=== PATIENT | female | born 1995 | race Hispanic/Latino ===

== ENCOUNTER 2020-08-24 11:53 | Inpatient (IN) | payer OTHER ==
[~2020-08-24] VITALS: Ht 149.9 cm; Wt 60.5 kg
--- OUTSIDE RECORDS SUMMARY | 2020-08-24 13:22 | XMS ---
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 E.Leticia VISIT COUNT (12 MO.) 2 [facility] [address] TOTAL 4 NOTE: Visits indicate total known visits. ED/UCC VISIT TRACKING (12 MO.) 08/24/2020 11:[address] [facility] [place] TYPE: Emergency COMPLAINT: - ABDOMINAL PAIN [facility] DIAGNOSES: - Epigastric pain - Calculus of gallbladder without cholecystitis without obstruction - abdominal and back pain 04/11/2020 13:[facility] COMPLAINT: - 35WKS PREG FALL, LOWER ABD PAIN DIAGNOSES: - 35WKS PREG FALL, LOWER ABD PAIN 10/08/2019 17:58 [facility] Nick DYLAN TYPE: Emergency DIAGNOSES: - Pregnacny Problem (4 weeks estimated gestation) - Unspecified abdominal pain - Other specified related conditions, first trimester - Abdominal Pain () INPATIENT VISIT TRACKING (12 MO.) 08/24/2020 11:56 [facility] [place] TYPE: Observation COMPLAINT: - ACUTE CHOLECYSITITIS 05/23/2020 07:40 [facility] [place] TYPE: Womens Services COMPLAINT: - Induction of labor DIAGNOSES: - Induction of labor [email or web address]
--- NOTE | 2020-08-24 15:23 | NUR ---
PT TRANSFERED TO [facility] VIA STRETCHER FROM ER. PT RESTING IN BED SAFELY, CALL LIGHT PLACED WITHIN REACH. NO C/O PAIN AT THIS TIME. VSS ON RA. SCD'S PLACED ON BILAT LE. IV FLUIDS INFUSING PER ORDER. ADMISSION ASSESSMENT AND CHARTING COMPLETED, NO NEEDS AT THIS TIME. REPORT RECIEVED FROM MAKENZIE CHRISTINE.
--- NOTE | 2020-08-24 16:50 | NUR ---
CALL FROM DR. JEROME THAT PATIENT WOULD GO TO SURGERY THIS EVENING. PATIENT IS DOING PRE-SURGERY WIPE DOWN.
--- NOTE | 2020-08-24 17:24 | NUR ---
MED REC COMPLETE
--- NOTE | 2020-08-24 18:17 | NUR ---
PT ADMITED FOR CHOLECYSTITIS W/ SURGERY TONIGHT. PT RESTING SAFELY IN BED WITH IV FLUIDS INFUSING PER PROVIDER ORDER. PT DENIES PAIN. IN ROOM.
--- NOTE | 2020-08-24 18:54 | NUR ---
SURGERY RN CAME TO FLOOR TO TAKE PT TO OR. PT VOIDED PRIOR TO BEING TAKEN. SCD'S ON AND LR W/ STRAIGHT TUBING HANGING.
--- NOTE | 2020-08-24 21:48 | NUR ---
08/24/202147 Cinda Paredes 2120 PT ARRIVED IN PACU NON RESPONSIVE TO NOXIOUS STIMULI WITH OPA IN PLACE. 2138 PT REACTIVE. OPA REMOVED. 2144 C/O URGE TO VOID. PLACED ON BEDPAN. UNABLE TO VOID. BEDPAN REMOVED.
--- NOTE | 2020-08-24 22:27 | NUR ---
PATIENT ARRIVED TO THE FLOOR VIA STRETCHER. PATIENT WAS ABLE TO AMBULATE FROM STRETCHER TO THE RESTROOM A SBA. PATIENT WAS ABLE TO VOID. PATIENT IS NO WIN BED RESTING. IV FLUIDS INFUSING. VITALS TAKEN AND RECORDED. PATIENT IS ON RA. IS IN ROOM. ALL QUESTIONS ANSWERED. NO NEEDS NOTED. CALL LIGHT IN REACH.
--- NOTE | 2020-08-24 22:55 | NUR ---
PATIENT CALLED ANR REPORTED 3/10 PAIN. PATIENT GIVEN PRN MOTRIN. PATIENT WAS ABLE TO TOLERATE JELLO WITH NO NAUSEA NOTED. NO FURTEHR NEEDS NOTED. CALL LIGHT IN REACH.
--- NOTE | 2020-08-24 23:27 | NUR ---
PATIENTS POST OP VITALS COMPLETED. PATIENT REPORTS NAUSEA. PRN NAUSEA MEDICATION GIVEN PER ORDER. HOB INCREASED. ICE PACK PROVIDED FOR PATIENTS ABD. NO FURTHER NEEDS NOTED. CALL LIGHT IN REACH.
--- NOTE | 2020-08-25 00:15 | NUR ---
PATIENT ASSISTED TO THE RESTROOM A SBA. PATIENT WAS ABLE TO VOID. PATIENT IS BACK IN BED RESTING. SCD IN USE. IV INFUSING. POST-OP VITALS TAKEN AND RECORDED. PATIENT DENIES ANY NAUSEA. PATIENT REPORTS 1/10 PAIN AND DENIES THE NEED FOR PAIN MEDICATION AT THIS TIME. CALL LIGHT IN REACH.
--- NOTE | 2020-08-25 01:06 | NUR ---
PATIENT ASSISTED TO THE RESTROOM A SBA. PATIENT WAS ABLE TO VOID. PATIENT IS BACK IN BED RESTING. PATIENT ASSISTED TO SET UP BREAT PUMP. NO FURTHER NEEDS NOTED. CALL LIGHT IN REACH.
--- NOTE | 2020-08-25 01:35 | NUR ---
PATIENT REPORTS 3/10 PAIN. PRN TYLENOL GIVEN PER ORDER. POST-OP VITALS TAKEN AND RECORDED. FRESH ICE WATER PROVIDED. PATIENT DENIES ANY NAUSEA. NO FURTHER NEEDS NOTED. CALL LIGHT IN REACH.
--- NOTE | 2020-08-25 02:55 | NUR ---
PATIENT ASSISTED TO THE RESTROOM A SBA W/FWW. PATIENT WAS ABLE TO VOID. PATIENT IS BACK IN BED RESTING. PATIENT PROVIDED WITH A SNACK. ASLEEP ON THE COUCH. NO FURTHER NEEDS NOTED. CALL LIGHT IN REACH.
--- NOTE | 2020-08-25 05:45 | NUR ---
PATIENT ASSISTED TO THE RESTROOM A SBA. PATIENT WAS ABLE TO VOID. PATIENT IS BACK IN BED RESTING. SCDS IN USE. PATIENTS VITALS TAKEN AND RECORDED. PREMA EMPTIED. INTAKE AND OUTPUT RECORDED. PATIENT REPORTS 3/10 PAIN. PATIENT GIVEN PRN MOTRIN PER ORDER. PATIENTS IV INFUSING PER ORDER. PATIENT DENIES ANY FURTHER NEEDS. CALL LIGHT IN REACH.
--- NOTE | 2020-08-25 06:07 | NUR ---
PATIENT CALLED AND REPORTED NAUSEA. PATIENT GIVEN PRN NAUSEA MEDICATION PER ORDER. NO FURTHER NEEDS NOTED. CALL LIGHT IN REACH.
--- NOTE | 2020-08-25 08:44 | NUR ---
patient resting in the bed, SO in the room. warm washcloth offered. patient got up to bathroom. call light with in reach. no further needs at this time.
--- NOTE | 2020-08-25 09:15 | NUR ---
Patient sitting up in bed pumping breast milk at this time. Patient to call me when she is done so I can to my morning assessment. Significant other at bedside. No needs at this time. Call light within reach.
--- NOTE | 2020-08-25 09:51 | NUR ---
Percocet 7.5/325mg po admin for reports of 8/10 abdominal pain.
--- NOTE | 2020-08-25 11:00 | NUR ---
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 Denies use of DME, financial issue, or needs. Her mother in law will stay with her and assist while her spouse works. He spouse is supportive and will help. She is painful now and RN notified. Denies needs for dc.
--- NOTE | 2020-08-25 11:16 | NUR ---
Ibuprofen 600mg po admin for reports of 8/10 abd pain. Patient ambulated in hallway with ALTERNATIVE MEDICINE PRACTITIONER assist; tolerated fairly, unable to make entire lap due to reports of severe abd pain. Patient back to bed. Fresh water provided. Pablo drain intact and patent.
--- NOTE | 2020-08-25 13:10 | NUR ---
Pt called to request assistance to the BR. SBA to BR, pt voided, now back in bed sitting up eating lunch, call light w/ in reach.
--- NOTE | 2020-08-25 13:24 | NUR ---
PT WAS AMBULATING IN HALLWAY WITH MAIKEL MANZO. RETRIEVED A WC-PT WAS BEGINNING TO STRUGGLE AND ALERTED HER RN DILLON TO COME TO HER AID. WILL FOLLOW
--- NOTE | 2020-08-25 15:57 | NUR ---
Patient reports passing flatus today. Bowel tones active x4 quadrant. Patient has no needs. Fresh water provided. Personal supplies and call light within reach.
--- NOTE | 2020-08-25 18:16 | NUR ---
Patient ambulated in hallway; tolerated well with 1P Standby assist.
--- NOTE | 2020-08-25 19:25 | NUR ---
in to provide pt an ice pack, no further needs
--- NOTE | 2020-08-25 19:39 | NUR ---
SHIFT REPORT RECEIVED FROM DILLON BANEGAS. PT RESTING IN BED. FAMILY IN ROOM. NO NEEDS AT THIS TIME. CALL LIGHT IN REACH.
--- NOTE | 2020-08-25 20:30 | NUR ---
IN TO GET VITALS, PT DUE TO VOID AT THIS TIME, DENIES NEED TO VOID, ICE WATER FILLED, ICE PACK IS STILL COOL FOR PT, NO FURTHER NEEDS AT THIS TIME
--- NOTE | 2020-08-25 20:46 | NUR ---
ASSESSMENT COMPLETED. GCS 15, A&O X4. PT EDUCATION PROVIDED ON I.S. ORAL TEMP WAS 99.3F. IV WNL, CDI, FLUSHED WELL. IV FLUIDS INFUSING PER ORDER. LUNGS CLEAR, HEART TONES REGULAR. ABD SOFT, TENDER, PT STATES MILDLY DISTENDED, WOUNDS CLEANED WITH WATER, PREMA DRESSING CHANGED. BOWEL TONES ACTIVE. CMS INTACT. PT PAIN 2/10, ICE PACK PROVIDED. FAMILY IN ROOM. NO OTHER NEEDS. CALL LIGHT IN REACH.
--- NOTE | 2020-08-25 21:04 | HP ---
[facility] [address], [place] [address] Signed ADMISSION DATE: 08/24/2020 REASON FOR ADMISSION: Acute calculous cholecystitis. HISTORY OF PRESENT ILLNESS: This 24-year-old woman was accompanied by her and presented to the Emergency Room and evaluated thoroughly by Dr. Bello for upper abdominal pain. She had been seen earlier in the day in the emergency room at [place] where full evaluation including gallbladder ultrasound showing multiple gallstones but no pericholecystic fluid or gallbladder wall thickening. She was found to have normal liver enzymes as well. Her white count was normal at 6.8. Consultation was initiated with the surgeon on-call in [place], however, that surgeon was in dispose and could not immediately present for further evaluation. The patient and her became unhappy, left the ER and presented to the ER in [place]. Note is made of lab studies done in [place] that showed a bilirubin of 0.2, alkaline phosphatase elevated at 170. Other liver enzymes were normal. The patient has had some improvement with Inapsine and intravenous pain medication and is now comfortable. The patient's pain began probably yesterday she thinks. It was associated with some nausea, no specific vomiting that she recalls. She has family history of biliary disease in her aunt. PAST MEDICAL HISTORY: Rather unremarkable except for childbirth x3. She has no known drug allergies. She has had eye surgery in the past, I am not sure what kind, possibly LASIK. She does not smoke. Does not use illicit drugs. SOCIAL HISTORY: She does not work outside the home. 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 REVIEW OF SYSTEMS: She denies any shortness of breath or chest pain. She had no dysphagia or dysuria. Denies any hematemesis or blood per rectum. PHYSICAL EXAMINATION: GENERAL: Pleasant woman who is somewhat sedated related to her medications, Electronically Signed By: DALY JEROME MD 08/25/20 2104 PATIENT NAME: SOPHIE OLIVAS HISTORY AND PHYSICAL DATE OF : [birth year] REPORT #: [id number] PHYSICIAN: DALY JEROME MD PCP: NO PRIMARY CARE PHYSICIAN REPORT IS CONFIDENTIAL AND NOT TO BE RELEASED WITHOUT AUTHORIZATION [facility] [address], [place] [address] Signed but fully alert and oriented otherwise. HEENT: Trachea is midline. Mucous membranes are quite dry. CHEST: Shows normal respiratory excursion. Pulses regular. ABDOMEN: Shows some laxity related to childbirth in the past. She has mild tenderness in the epigastric and subcostal area. EXTREMITIES: Shows no clubbing, cyanosis, or edema. LAB STUDIES: Were as described. Beta-hCG is negative. COVID test is pending. She tells me she has had COVID vaccination. ASSESSMENT: The patient is noted to have symptoms highly typical of acute calculous cholecystitis for which cholecystectomy would be recommended. Discussed with her this in detail. A laparoscopic approach would be most probable and quite likely overall. The risk of bleeding, infection, bile duct injury, need for open procedure, and so forth were reviewed in detail, she understands. PLAN: We will continue with IV antibiotics, fluid resuscitation and consider for cholecystectomy possibly later in the evening or tomorrow depending on other logistical factors. Daly Jerome MD JM/MODL /[id number] cc: Franklin Bello MD Copies: FRANKLIN BELLO MD ~ Electronically Signed By: DALY JEROME MD 08/25/20 2104 PATIENT NAME: SOPHIE OLIVAS HISTORY AND PHYSICAL DATE OF : [birth year] REPORT #: [id number] PHYSICIAN: DALY JEROME MD PCP: NO PRIMARY CARE PHYSICIAN REPORT IS CONFIDENTIAL AND NOT TO BE RELEASED WITHOUT AUTHORIZATION
--- NOTE | 2020-08-25 22:07 | NUR ---
SCHEDULED MED PROVIDED. ICE PACK PROVIDED. NO OTHER NEEDS. CALL LIGHT IN REACH.
--- NOTE | 2020-08-25 22:40 | NUR ---
PT ABD PAIN 09/10, PRN PAIN MED PROVIDED. PT UP TO BR. PT TO USE CALL LIGHT WHEN READY TO GO BACK TO BED.
--- NOTE | 2020-08-26 00:06 | NUR ---
PT RESTING IN BED, WATCHING TV. NO NEEDS AT THIS TIME. CALL LIGHT IN REACH.
--- NOTE | 2020-08-26 02:19 | NUR ---
PT CALLED, SHE USED RESTROOM. ADMINISTERED MOTRIN FOR 4/10 PAIN. SHE DENIES FURTHER NEEDS AT THIS TIME. CALL LIGHT IS CLOSE.
--- NOTE | 2020-08-26 05:19 | NUR ---
ASSESSMENT, VS AND I&O COMPLETED. PT DENIES PAIN. SCHEDULED MED PROVIDED. GCS 15, A&O X4. IV WNL, IV FLUIDS INFUSING PER ORDER. LUNGS CLEAR, HEART TONES REGULAR. ABD SOFT, TENDER, MILDLY DISTENDED, BOWEL TONES ACTIVE. PT DENEIS NAUSEA. CMS INTACT. ABD DRESSINGS WNL, PREMA EMPTIED OF 15ML SS OUTPUT. PT REPORTS FLATUS. NO OTHER NEEDS. CALL LIGHT IN REACH, SPOUSE IN ROOM.
--- NOTE | 2020-08-26 06:04 | NUR ---
PT REPORTS NAUSEA, PRN NAUSEA MED PROVIDED. NO OTHER NEEDS. CALL LIGHT IN REACH.
--- NOTE | 2020-08-26 08:20 | NUR ---
Patient reports nausea. Recently given zofran. Patient reports she was eating a cookie for breakfast. Encouraged patient to avoid sweet foods for the time being to help prevent stomach upset. Patient to shower and ambulate this morning here shortly.
--- NOTE | 2020-08-26 08:43 | NUR ---
Patient called for a new toilet HAT, one was provided. Provided warmm blanket and warm washcloth for morning routine. Call lightl left in reach. No other immediate needs at this time.
--- NOTE | 2020-08-26 10:29 | NUR ---
IBUPROFEN 600MG PO FOR 5/10 ABD PAIN.
--- NOTE | 2020-08-26 11:30 | NUR ---
Patient requested a shower. The shower was successfully complete. Patient complained of nauseau and drainage tubing. Bed linens changed, room tidied and organized. Patient went for a 10 minute walk w/ partner. Call light left in reach along with personal items.
--- NOTE | 2020-08-26 12:32 | NUR ---
PT SITTING ON SIDE OF BED FACING IN CHAIR. PT CLUTCHING PILLOW TO ABDOMEN. SEEMS TO DO MOST OF TALKIN FOR PT. SHE DID KNODD, THANKED ME FOR COMING IN. GAVE BLESSING AND WILL FOLLOW
--- NOTE | 2020-08-26 12:33 | NUR ---
Zofran 4mg IVP admin for reports of nausea.
--- NOTE | 2020-08-26 14:00 | NUR ---
In to see pt. Dr. Miner in room removing drain and giving dc instructions. He reviewed instructions with spouse. Pt will dc to home today with assist from family.
[2020-08-26] MEDS ORDERED: OXYCODON-ACETA1 EAC2 PO (14:08)
[2020-08-26] MEDS ORDERED: IBUPROFEN600 MG PO (14:08)
[2020-08-26] MEDS ORDERED: TYLENOL EXTRA500 MG PO (14:09)
[2020-08-26] MEDS ORDERED: ZOFRAN4 MG PO (15:13)
--- NOTE | 2020-08-27 11:49 | OR ---
[facility] [address] [place], [place] [address] Signed DATE OF OPERATION: 08/24/2020 SURGEON: Daly Jerome MD PREOPERATIVE DIAGNOSIS: Acute calculous cholecystitis. POSTOPERATIVE DIAGNOSIS: Acute calculous cholecystitis as well as obstructing distal common duct stone. PROCEDURES: 1. Laparoscopic cholecystectomy with laparoscopic transcystic common bile duct exploration. 2. Flexible choledochoscopy with extraction of stone debris. 3. Surgeon-directed fluoroscopy. ANESTHESIA: General endotracheal, Willian Graham, CEO and local 20 mL of 0.25% Marcaine with epinephrine. INDICATION: This 24-year-old woman presented to the [place] Emergency Room earlier in the day today, was diagnosed with multiple gallstones and findings consistent with acute cholecystitis. Her alkaline phosphatase was somewhat elevated and amylase was normal. She was disgruntled at the wait time to see a surgeon and left the ER and presented to [facility] where she was evaluated thoroughly by Dr. Franklin Bello. Her findings were consistent with acute calculous cholecystitis and consultation was undertaken. She has been admitted to the hospital, given intravenous fluid resuscitation, IV antibiotics and has been recommended to undergo cholecystectomy preferred by laparoscopic approach. She understands the risk of bleeding, infection, bile duct injury, need for open procedure and other unforeseen complications and wished to proceed. FINDINGS: The gallbladder was chronically inflamed actually. Preliminary intraoperative cholangiogram showed passage of contrast into the duodenum from the common duct and with various maneuvers, it appeared there was an obstructing distal common duct stone. On that basis, a transcystic duct common duct exploration was undertaken ultimately allowing for complete clearance of the duct. There were no other issues of note. Electronically Signed By: DALY JEROME MD 08/27/20 1149 PATIENT NAME: SOPHIE OLIVAS OPERATIVE REPORT DATE OF : [birth year] REPORT #: [id number] PHYSICIAN: DALY JEROME MD PCP: NO PRIMARY CARE PHYSICIAN REPORT IS CONFIDENTIAL AND NOT TO BE RELEASED WITHOUT AUTHORIZATION [facility] [address] [place], [place] [address] Signed DESCRIPTION OF PROCEDURE: The patient was brought to the operating room, given a general endotracheal anesthetic. Preoperative antibiotic Ancef had been given. Sequential compression device stockings used and heparin subcutaneously administered. After satisfactory general endotracheal anesthesia, the abdomen was prepared with a chlorhexidine solution and draped sterilely. An infraumbilical incision was made and using an open Elenita cannula technique pneumoperitoneum was achieved to a level of 14 mmHg with carbon dioxide gas. Intraabdominal inspection showed no sign of ascites or carcinomatosis. The gallbladder was chronically inflamed. The liver was normal. Three additional trocars were placed in usual configuration in the subxiphoid, right midclavicular, and right anterior axillary line. The gallbladder was elevated cephalad and found to have a fair amount of inflammatory change in the infundibulum. Infundibulum was grasped and retracted laterally using blunt electrocautery dissection and triangle of Calot was dissected free. Clips were applied to the dominant cystic duct, cystic artery allowing for division and more clear identification of the infundibulum and the cystic duct. Once the cystic duct was quite clearly identified, a clip was applied the gallbladder cystic duct junction and transverse choledochotomy made in the cystic duct. Retrograde milking of the cystic duct showed inflammatory biliary fluid. There were no stones. Using surgeon directed fluoroscopy with a cholangiogram with grasper, intraoperative cholangiography was undertaken. Free flow of contrast was noted into the biliary tree but impediment of flow into the duodenum. Retrograde filling of the proximal biliary radicals affirmed that the ampulla clearly had some obstructive process. One amp of glucagon was given. After appropriate wait time, repeat cholangiogram undertaken showing persistence of the obstruction. There appeared to be a probable single stone obstructing the distal duct. At this point, a laparoscopic common duct exploration was deemed advisable. A 5 mm port was placed with the cystic duct (taut) and a flexible wire passed down the cystic duct. Fluoroscopy confirmed the position of the wire into the common duct and into the duodenum. An ERCP catheter was then passed over the wire under direct visualization and the radiopaque nataliia is aligned along the ampulla. Dilation of the ampulla was then undertaken in the usual way, deflated and withdrawn to the cystic duct to allow for dilation of the cystic duct as well. Repeat cholangiography was undertaken after flushing of the duct, which showed persistence of impediment of flow of contrast and filling defect. A flexible choledochoscope with video assistance was passed down the cystic duct with all due care. The flexible choledochoscope could not really pass beyond the ampulla as Electronically Signed By: DALY JEROME MD 08/27/20 1149 PATIENT NAME: SOPHIE OLIVAS OPERATIVE REPORT DATE OF : [birth year] REPORT #: [id number] PHYSICIAN: DALY JEROME MD PCP: NO PRIMARY CARE PHYSICIAN REPORT IS CONFIDENTIAL AND NOT TO BE RELEASED WITHOUT AUTHORIZATION [address] [address] Signed sometimes is the case, but no stone was seen in the distal duct itself. The scope was withdrawn and shards of stone debris were noted in the common duct as well as a flake like relatively larger bit of stone. This was grasped with a basket device and withdrawn. Irrigation was undertaken and cholangiography repeated after a number of other maneuvers in the meantime, ultimately showing free flow of contrast in the biliary tree with no sign of stone or impediment to flow. Progression to cholecystectomy fully was then undertaken. The cystic duct was triply clipped and divided. The gallbladder was dissected free in a retrograde fashion using electrocautery. The gallbladder was extracted through the infraumbilical port site without problem, opened on the back table and found to have multiple small 3-4 mm roundish stones. There was no sign of neoplasm. Irrigation was undertaken in the subhepatic space. There was a small amount of bleeding in the midportion of the hepatic bed, which was secured largely with electrocautery, but some Vitaly powder was then applied to that site as well. A 7 mm flat Pablo drain was placed in the subhepatic space and brought out a right-sided trocar site and secured to the skin with nylon suture. Excess irrigation fluid was suctioned free. Trocars removed under direct visualization showing no sign of bleeding. The infraumbilical fascial incision was reapproximated with interrupted 0 Vicryl suture. A 20 mL of 0.25% Marcaine was injected locally. Skin was closed with interrupted 3-0 Monocryl. Steri-Strips were applied. The patient was ultimately extubated and transferred to recovery room in good condition having suffered no complications. Sponge, needle, and instrument counts were reported as correct x3. MD YOLETTE Iglesias/GRETTA /[id number] cc: Dr. Franklin Bello MD Copies: FRANKLIN BELLO MD Electronically Signed By: DALY JEROME MD 08/27/20 1149 PATIENT NAME: OLIVASSOPHIE JCARLOS OPERATIVE REPORT DATE OF : [birth year] REPORT #: [id number] PHYSICIAN: DALY JEROME MD PCP: NO PRIMARY CARE PHYSICIAN REPORT IS CONFIDENTIAL AND NOT TO BE RELEASED WITHOUT AUTHORIZATION [address] [address] Signed ~ Electronically Signed By: DALY JEROME MD 08/27/20 1149 PATIENT NAME: SOPHIE OLIVASINA OPERATIVE REPORT DATE OF : [birth year] REPORT #: [id number] PHYSICIAN: DALY JEROME MD PCP: NO PRIMARY CARE PHYSICIAN REPORT IS CONFIDENTIAL AND NOT TO BE RELEASED WITHOUT AUTHORIZATION
--- NOTE | 2020-08-27 11:49 | DS ---
[facility] [address], [place] [address] Signed ADMISSION DATE: 08/24/2020 DISCHARGE DATE: 08/26/2020 REASON FOR ADMISSION: Acute calculous cholecystitis. HISTORY OF PRESENT ILLNESS: This 24-year-old woman is accompanied by her and presented to the emergency room where she was evaluated by Dr. Bailey for upper abdominal pain. She had been seen earlier in the day in [place], [place] with abdominal pain. having to wait to see a surgeon, she left AMA and presented at [place]. She was confirmed to have multiple gallstones and findings consistent with acute cholecystitis and was admitted for further evaluation and care. Other details can be found in the initial history and physical paperwork. Of note, she had an alkaline phosphatase elevated at 170 and bilirubin was normal at 0.2. Other liver enzymes were normal. PERTINENT PHYSICAL EXAM: GENERAL: A pleasant woman who is somewhat sedated with medications, but fully alert and oriented otherwise. HEENT: Trachea is midline. Mucous membranes are quite dry. CHEST: Clear. HEART: Regular without murmur. ABDOMEN: Shows laxity related to childbirth (has infant at home currently) had mild tenderness in the epigastric and subcostal area. LABORATORY STUDIES: Showed a beta-HCG which is negative, COVID test was negative. HOSPITAL COURSE: The patient was fluid resuscitated, given intravenous antibiotic Ancef and taken to operation for acute calculous cholecystitis. She was found on cholangiogram to have obstruction of the common bile duct at the ampulla. On that basis, a laparoscopic transcystic common duct exploration was undertaken, which included balloon dilation, flexible choledochoscopy, and so forth. A T-tube cholangiogram at conclusion showed no sign of filling defect and no impediment of flow of contrast into the duodenum. Her postoperative course was relatively unremarkable. A drain was left in place, postoperatively showed no sign of bile leak. She was somewhat slow to go due to discomfort, but in time was fully ambulatory, tolerating a regular diet. Had no adverse findings from the drain. Of special note, liver enzymes on day of discharge appeared to be normal with no evidence of retained stone from a clinical or chemical standpoint. Her discharge white count is 6.5, hematocrit 33.4, platelets 199,000, creatinine of Electronically Signed By: DALY JEROME MD 08/27/20 1149 PATIENT NAME: SOPHIE OLIVAS DISCHARGE SUMMARY DATE OF : [birth year] REPORT #: [id number] PHYSICIAN: DALY JEROME MD PCP: NO PRIMARY CARE PHYSICIAN REPORT IS CONFIDENTIAL AND NOT TO BE RELEASED WITHOUT AUTHORIZATION [facility] [address], [place] [address] Signed 0.63, glucose of 102, alkaline phosphatase 118, LD 121, total protein 64, ALT 45, AST 32. DISCHARGE MEDICATIONS: Will include: 1. Tylenol 1000 mg p.o. q.6 hours p.r.n. pain. 2. Motrin 600 mg p.o. q.6 hours p.r.n. pain. 3. Percocet 7.5/325 1 to 2 q.6 hours as needed for severe pain. FOLLOWUP PLAN: She will return to see me in approximately a month. She will call for an appointment. She is instructed to lift no more than 20 pounds for the next two weeks and is permitted to shower. The drain was placed at time of operation and was removed prior to discharge. She will walk on a daily basis and new Steri-Strips in place. DISCHARGE DIAGNOSES: 1. Acute calculous cholecystitis with choledocholithiasis requiring laparoscopic cholecystectomy and laparoscopic common duct exploration including flexible choledochoscopy. 2. state (still breast-feeding). MD YOLETTE Iglesias/MODL /[id number] Copies: ~ Electronically Signed By: DALY JEROME MD 08/27/20 1149 PATIENT NAME: SOPHIE OLIVAS DISCHARGE SUMMARY DATE OF : [birth year] REPORT #: [id number] PHYSICIAN: DALY JEROME MD PCP: NO PRIMARY CARE PHYSICIAN REPORT IS CONFIDENTIAL AND NOT TO BE RELEASED WITHOUT AUTHORIZATION
== END 2020-08-26 15:05 | disposition home or self-care (01) | DRG 419 ==
LOC: ED 11:53 → MS 11:56 → ED 11:56 → MS 12:45
PROVIDERS: ADMIT Surgery; ATTEND Surgery
PROC: 0FC94ZZ Extirpation of Matter from Common Bile Duct, Percutaneous Endoscopic Approach (ICD-10-PCS; 2020-08-24)
PROC: 0FT44ZZ Resection of Gallbladder, Percutaneous Endoscopic Approach (ICD-10-PCS; principal; 2020-08-24 19:00)
DX: K80.63 Calculus of gallbladder and bile duct with acute cholecystitis with obstruction (principal); Z20.822 Contact with and (suspected) exposure to COVID-19; R74.8 Abnormal levels of other serum enzymes
CPT/HCPCS: 00790; 74300; 82150; 84703; 85025; 88304; 96374; 96375; 99284-25; A9270; C1726; C1769; C1894; C9803; J0690; J1100; J1170; J1200; J1610; J1790; J1885; J2001; J2250; J2270; J2405; J2704; J3010; J7030; J7121; Q9967; U0003